=== PATIENT | male | born 1960 | race Caucasian/White ===

== ENCOUNTER 2023-02-12 09:52 | Outpatient (CLI) | payer OTHER, SELFPAY | END 2023-02-12 09:53 | disposition home or self-care (01) | LOC: ANHAUDASC 09:53 | PROVIDERS: PCP Otolaryngology; Visit Provider Otolaryngology | DX: H90.12 Conductive hearing loss, unilateral, left ear, with unrestricted hearing on the contralateral side (principal); H72.92 Unspecified perforation of tympanic membrane, left ear; H65.91 Unspecified nonsuppurative otitis media, right ear; H61.22 Impacted cerumen, left ear | CPT/HCPCS: 92557; 92567 ==